=== PATIENT | female | born 1995 | race Asian ===

== ENCOUNTER 2017-08-26 17:24 | Emergency (ER) | payer OTHER ==
[~2017-08-26] VITALS: Ht 162.6 cm; Wt 56.7 kg
[2017-08-26 17:32] VITALS: BP 124/85
--- NOTE | 2017-08-26 17:49 | NUR ---
Patient ambulated to bed 08.
--- NOTE | 2017-08-26 17:51 | NUR ---
Dr. Grey evaluating patient at bedside.
--- NOTE | 2017-08-26 18:02 | NUR ---
DISPO AND MEDICAL DECISION MAKING, DC HOME WITH INSTRUCTIONS AND PRESCRIPTIONS, UNDERSTOOD BY PATIENT WELL, VSWNL, NO DISTRESS.
[2017-08-26 18:04] VITALS: BP 118/68
== END 2017-08-26 18:04 | disposition home or self-care (01) ==
LOC: MED 17:24
DX: J02.9 Acute pharyngitis, unspecified (principal); R05 Cough; F17.210 Nicotine dependence, cigarettes, uncomplicated; Z88.1 Allergy status to other antibiotic agents
CPT/HCPCS: 99283